=== PATIENT | male | born 1985 | race Two or more races ===

== ENCOUNTER 2024-09-26 10:26 | Emergency (ER) | payer MEDICAID, OTHER ==
[~2024-09-26] VITALS: Ht 188 cm; Wt 92.0 kg
[2024-09-26 10:38] VITALS: BP 138/94; PULSE 76; TEMP 97.8
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
[2024-09-26 10:48] VITALS: RESP 20; O2SAT 100
[2024-09-26] MEDS: IPRATROPIUM BROM 0.5 MG/2.5ML INH SOL NEB ONE (10:48)
[2024-09-26] MEDS: ALBUTEROL SULF 2.5 MG/0.5ML(0.5%) NEB SOLN NEB ONE (10:48)
[2024-09-26 11:06] LABS: Basophils # (auto) 0 10 ^3/uL (0-0.2); Basophils % (auto) 0.2 % (0.0-2.0); Eosinophils # (auto) 0.2 10 ^3/uL (0-0.8); Eosinophils % (auto) 1.8 % (0.0-7.0); Hematocrit 47.5 % (41.0-53.0); Hemoglobin 16.3 g/dL (13.5-17.5); Lymphocytes # (auto) 0.8 10 ^3/uL (0.4-5.4); Lymphocytes % (auto) 7.7 % (10.0-50.0); Mean Corpuscular Hemoglobin 31.2 pg (28.0-32.0); Mean Corpuscular Hgb Conc. 34.4 g/dL (32.0-36.0); Mean Corpuscular Volume 90.7 fL (80.0-100.0); Monocytes # (auto) 0.4 10 ^3/uL (0-1.3); Monocytes % (auto) 4.1 % (0.0-12.0); Neutrophils % (auto) 86.2 % (37.0-80.0); Nucleated Red Blood Cells % 0.2 %; Platelet Count (auto) 191 10^3/uL (140-450); Red Blood Cells 5.24 10^6/uL (4.5-5.90); Red Cell Distribution Width 14.2 % (11.8-14.3); White Blood Cell 10.4 10^3/uL (4.4-10.8)
[2024-09-26 11:10] LABS: Urine Bacteria None Seen /hpf (None Seen)
--- NOTE | 2024-09-26 11:13 | DVH ---
CHEST RADIOGRAPH Indication: sob, cough Technique: Single frontal view of the chest was obtained Comparison: None FINDINGS: Lines and Tubes: None Lungs: No focal consolidation. Pleura: No effusion. No pneumothorax. Cardiomediastinal contours: Unremarkable Bones: No acute osseous abnormality. IMPRESSION: No acute cardiopulmonary disease.
[2024-09-26 11:16] LABS: Urine Blood Negative /uL (Negative); Urine Clarity Clear (Clear); Urine Color Light-Yellow (Yellow); Urine Protein, UAD Negative (Negative); Urine Specific Gravity 1.023 (1.001-1.035); Urine Squamous Epithelial Cell None Seen /hpf (<5); Urine Urobilinogen Normal (Negative); Urine WBC 1 /HPF (0-3)
[2024-09-26 11:28] LABS: COVID19 ANTIGEN SOFIA FIA NEGATIVE (NEGATIVE); Rapid Influenza A Negative (Negative); Rapid Influenza B Negative (Negative)
[2024-09-26 11:31] LABS: Alanine Aminotransferase 34 U/L (7-40); Alkaline Phosphatase 100 U/L (46-116); Anion Gap 7 (5-15); Aspartate Aminotransferase 22 U/L (13-40); BUN/Creatinine Ratio 12.1 (10.0-20.0); Blood Urea Nitrogen 15 mg/dL (9-23); Calcium 10.4 mg/dL (8.7-10.4); Carbon Dioxide 25 mmol/L (20-31); Chloride 106 mmol/L (98-107); Potassium 3.9 mmol/L (3.5-5.1); Sodium 138 mmol/L (136-145)
[2024-09-26 11:32] LABS: Bilirubin, Total 0.3 mg/dL (0.2-1.0)
[2024-09-26 11:34] LABS: Albumin 5.4 g/dL (3.2-4.8); Glucose 122 mg/dL (74-106)
[2024-09-26 11:52] LABS: Lipase 42 U/L (12-53)
[2024-09-26] MEDS: SODIUM CHLORIDE 0.9% 1,000 ML IV ONE (12:01)
[2024-09-26] MEDS: ONDANSETRON HCL 4 MG/2 ML VIAL IV ONE (12:27)
[2024-09-26] MEDS: KETOROLAC TROMETH 30 MG/ML 1ML VIAL IV ONE (12:27)
[2024-09-26] MEDS: LORazepam 0.5 MG TAB PO ONE (12:43)
[2024-09-26] MEDS ORDERED: ACET-1304 PO (14:08)
[2024-09-26] MEDS ORDERED: ZOFR4T PO (14:08)
[2024-09-26] MEDS ORDERED: ALBU108A5 IN (14:08)
== END 2024-09-26 14:14 | disposition home or self-care (01) ==
LOC: ER 10:26
DX: R11.2 Nausea with vomiting, unspecified (principal); R05.9 Cough, unspecified; Z98.890 Other specified postprocedural states; Z20.822 Contact with and (suspected) exposure to COVID-19
CPT/HCPCS: 36415; 71045; 80053; 81001; 83690; 85025; 87426; 87804; 94640; 96361; 96374; 96375; 99284; J1885; J2405; J7030